=== PATIENT | male | born 1965 | race Caucasian/White ===

== ENCOUNTER 2022-12-28 07:53 | Outpatient (REF) | payer OTHER, SELFPAY ==
[2022-12-28 11:28] LABS: MANUAL DIFF FLAG NO
[2022-12-28 11:38] LABS: Basophils Absolute Auto 0.1 X10*3/uL (0.0-0.2); Basophils Percent Auto 0.9 % (0-2); Eosinophils Absolute Auto 0.2 X10*3/uL (0.0-0.4); Eosinophils Percent Auto 3.6 % (0-4); Hematocrit 44.8 % (42.0-52.0); Hemoglobin 15.6 g/dl (14.0-18.0); Imm Gran Abs Auto 0.03 X10*3/uL (0.00-0.03); Imm Gran Pct Auto 0.5 % (0.0-0.4); Lymphocytes Absolute Auto 1.6 X10*3/uL (1.2-4.9); Lymphocytes Percent Auto 28.6 % (20-40); Mean Corpuscular HGB Conc 34.8 g/dl (31.0-36.0); Mean Corpuscular Hemoglobin 30.3 pg (27.0-33.0); Mean Platelet Volume 10.2 fL (9.4-12.4); Monocytes Absolute Auto 0.7 X10*3/uL (0.1-1.2); Monocytes Percent Auto 12.6 % (2-11); Neutrophils Percent Auto 53.8 % (45-73); Platelet Count 257 X10*3/uL (160-400); Red Blood Count 5.15 X10*6/uL (4.60-5.80); Red Cell Distribution Width 12.9 % (11.0-16.0); White Blood Count 5.6 X10*3/uL (4.8-10.8)
[2022-12-28 11:47] LABS: Estimated Average Glucose 103 mg/dL; Hemoglobin A1c % 5.2 %
[2022-12-28 12:20] LABS: Alanine Aminotransferase 30 U/L (0-40); Albumin Level 4.4 g/dL (3.5-5.0); Alkaline Phosphatase 61 U/L (39-117); Anion Gap 12 (12-20); Aspartate Amino Transferase 22 U/L (5-37); Bilirubin Total 0.6 mg/dL (0.0-1.0); Blood Urea Nitrogen 12 mg/dL (9-16); Calcium 9.4 mg/dL (8.4-10.2); Carbon Dioxide 28 mmol/L (22-29); Chloride 105 mmol/L (96-108); Cholesterol 240 mg/dL; Estimated Glomerular Filt Rate > 60; Glucose Random 105 mg/dL (60-115); HDL Cholesterol 62 mg/dL; LDL Cholesterol Calculated 163 mg/dl; Potassium 4.5 mmol/L (3.3-5.1); Sodium 140 mmol/L (135-145); Total Protein 6.8 g/dL (6.5-8.0); Triglycerides 76 mg/dL
[2022-12-28 12:39] LABS: Prostate Specific Antigen 0.68 ng/mL (<0.05-4.0); Vitamin D 25-OH Total 117.1 ng/mL (>30)
== END 2022-12-28 07:54 | disposition home or self-care (01) ==
LOC: HO.MANLDS 07:53
PROVIDERS: Visit Provider Physician Assistant
DX: E78.2 Mixed hyperlipidemia (principal); E55.9 Vitamin D deficiency, unspecified; Z12.5 Encounter for screening for malignant neoplasm of prostate; R73.01 Impaired fasting glucose
CPT/HCPCS: 36415; 80053; 80061; 82306; 83036; 84153; 85025

== ENCOUNTER 2023-11-04 15:46 | Outpatient (REF) | payer OTHER, SELFPAY ==
[2023-11-04 17:28] LABS: MANUAL DIFF FLAG NO
[2023-11-04 17:47] LABS: Estimated Average Glucose 100 mg/dL; Hemoglobin A1C 124.6956 umol/L; Hemoglobin A1c % 5.1 % (<6.0)
[2023-11-04 17:53] LABS: Basophils Absolute Auto 0.1 X10*3/uL (0.0-0.2); Basophils Percent Auto 0.7 % (0-2); Eosinophils Absolute Auto 0.2 X10*3/uL (0.0-0.4); Eosinophils Percent Auto 2.6 % (0-4); Hematocrit 43.3 % (42.0-52.0); Hemoglobin 15.6 g/dl (14.0-18.0); Imm Gran Abs Auto 0.03 X10*3/uL (0.00-0.03); Imm Gran Pct Auto 0.4 % (0.0-0.4); Lymphocytes Percent Auto 26.9 % (20-40); Mean Corpuscular Hemoglobin 30.6 pg (27.0-33.0); Mean Corpuscular Volume 85.1 fL (80.0-98.0); Monocytes Absolute Auto 0.8 X10*3/uL (0.1-1.2); Monocytes Percent Auto 10.4 % (2-11); Neutrophils Absolute Auto 4.4 x10*3/uL (2.0-8.3); Platelet Count 260 X10*3/uL (160-400); Red Blood Count 5.09 X10*6/uL (4.60-5.80); Red Cell Distribution Width 12.9 % (11.0-16.0); White Blood Count 7.4 X10*3/uL (4.8-10.8)
[2023-11-04 17:58] LABS: Alanine Aminotransferase 29 U/L (0-40); Albumin Level 4.5 g/dL (3.5-5.0); Alkaline Phosphatase 53 U/L (39-117); Anion Gap 13 (12-20); Aspartate Amino Transferase 21 U/L (5-37); Bilirubin Total 0.6 mg/dL (0.0-1.0); Blood Urea Nitrogen 13 mg/dL (9-16); Calcium 9.2 mg/dL (8.4-10.2); Carbon Dioxide 26 mmol/L (22-29); Chloride 102 mmol/L (96-108); Estimated Glomerular Filt Rate > 60; Glucose Random 84 mg/dL (60-115); Iron 103 mcg/dL (45-160); Percent Iron Saturation 37 % (15-50); Potassium 4.1 mmol/L (3.3-5.1); Sodium 137 mmol/L (135-145); Total Iron Binding Capacity 278 mcg/dL (228-428); Total Protein 7.3 g/dL (6.5-8.0); Unsaturated Iron Binding 175 ug/dL
[2023-11-04 18:11] LABS: Prostate Specific Antigen 1.09 ng/mL (<0.05-4.0)
[2023-11-04 18:20] LABS: Ferritin 278 ng/mL (20-250); Free T4 (Free Thyroxine) 1.05 ng/dL (0.71-1.85); Thyroid Stimulating Hormone 1.35 uIU/mL (0.32-4.0); Vitamin D 25-OH Total > 154.2 ng/mL (>30)
== END 2023-11-04 15:47 | disposition home or self-care (01) ==
LOC: HO.MANLDS 15:46
PROVIDERS: Visit Provider Physician Assistant
DX: Z00.00 Encounter for general adult medical examination without abnormal findings (principal); Z12.5 Encounter for screening for malignant neoplasm of prostate
CPT/HCPCS: 36415; 80053; 82306; 82728; 83036; 83540; 84153; 84439; 84443; 85025

== ENCOUNTER 2024-11-16 10:07 | Outpatient (REF) | payer OTHER, SELFPAY ==
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
--- OUTSIDE RECORDS SUMMARY | 2024-11-16 11:16 | XMS_ITS | Data Portability ---
Author Organization [facility], [facility] Address [address] [place] [address] Care Team Providers Care Project Builder Name Role Phone LOY PEREZ Primary Care Provider MOHAN CANALES Orthopedist [phone] Assessment No assessment recorded. Plan of Treatment Reminders Order Date Submit Date Provider Last Modified By Organization Details Last Modified Time Details Appointments None recorded. Lab None recorded. Referral None recorded. Procedures colonoscopy procedure (PROC) [address] [facility], [address] [place] [address], [address], 2 10:38:05 Surgeries None recorded. Imaging None recorded. Medication Orders losartan 25 mg tablet 2021 022 [facility] #[id number], [address], [place], [id number], 3 10:33:38 [facility] 10 mg tablet 2020 [id number], [address], [place], [id number], 3 10:33:36 amlodipine 5 mg tablet 2020 021 [id number], [address], [place], [id number], 1 16:34:36 Patient TargetsNo targets recorded. Patient Instructions Encounter Date Encounter Id Patient Instructions Last Modified By Organization Details Last Modified Time 11/16/2020 [id number] deciding about using medicines to quit smoking yvonne Not available 11/16/2020 16:54:36 Quitting Tobacco: Care Instructions yvonne Not available 11/16/2020 16:54:36 Well Visit 50 to 65: Care Instructions yvonne Not available 11/16/2020 16:54:37 After a discussion of treatment options, which included consideration of best practices and patient preferences, the following treatment plan and objectives were adopted: Vitamin D 1000 IUs, Calcium rich diet, exercise daily, resistance training twice per week, Mediterranean diet reviewed. yvonne Not available 11/16/2020 16:55:51 Prostate Cancer Screening using PSA was discussed. The U.S. Preventive Services Task Force advises not to make a PSA test a part of the standard exam for men ages 55-69. Instead they recommend the uncertainties about the test be discussed and ordered only if a patient still wants it. Over their lifetimes as many as 50% or more of men will develop prostate cancer but only 2% of men will of prostate cancer. For men who chose to be screened for prostate cancer if 1000 men are screened with a psa test over a 15 year period there might be 1-2 deaths prevented however 235 men will have a biopsy with risk of infection, bleeding and Pain, 100 men will have their prostate removed by surgery or radiation treatments and 60-70 of those will suffer incontinence or impotence. There is also the risk of anesthesia or radiation complications. For men over 70 prostate cancer screening offered no benefit and risked pain, worry, expense and possibly shorter life expectancy. Counseling done {{Patient not ready to quit Contemplati ng quitting Taperin g Cigarettes cally d up for support prescrip tion for stop smoking medication given}} {{Patient not ready to quit Contemplati ng quitting Taperin g Cigarettes cally d up for support prescrip tion for stop smoking medication given}} Goal for follow up visit {{adding exercise regular meals stress management impro ving sleep therapist identifying sponsor}} {{adding exercise regular meals stress management impro ving sleep therapist identifying sponsor}} {{adding exercise regular meals stress management impro ving sleep therapist identifying sponsor}}My Health To Do List {{go to [employer] www.[employer] or call s ign up for glenn text 2 quit or other stop smoking glenn contact [employer].gov}} {{go to [employer] ([employer]) or call s ign up for glenn text 2 quit or other stop smoking glenn contact smokefree.gov}} {{go to [employer] (formerly [employer]) or call s ign up for glenn text 2 quit or other stop smoking glenn contact smokefree.gov}} Not available 11/16/2020 15:52:26 05/17/2021 [id number] high cholesterol lifestyle changes aesrick Not available 05/17/2021 17:16:49 deciding about using medicines to quit smoking aesrick Not available 05/17/2021 17:16:49 Quitting Tobacco: Care Instructions aesrick Not available 05/17/2021 17:16:49 Counseling done {{Patient not ready to quit* Contemplat ing quitting Taperin g Cigarettes cally d up for support prescrip tion for stop smoking medication given}} {{Patient not ready to quit Contemplati ng quitting Taperin g Cigarettes cally d up for support prescrip tion for stop smoking medication given}} Goal for follow up visit {{adding exercise regular meals stress management impro ving sleep therapist identifying sponsor}} {{adding exercise regular meals stress management impro ving sleep therapist identifying sponsor}} {{adding exercise regular meals stress management impro ving sleep therapist identifying sponsor}} My Health To Do List {{go to [employer] or call s ign up for glenn text 2 quit or other stop smoking glenn contact smokefree.gov}} {{go to [employer] ([employer]) or call s ign up for glenn text 2 quit or other stop smoking glenn contact smokefree.gov}} {{go to [employer] ([employer]) or call s ign up for glenn text 2 quit or other stop smoking glenn contact smokefree.gov}} aesrick Not available 05/17/2021 17:16:13 06/28/2021 [id number] After a discussion of treatment options, which included consideration of best practices, patient preferences, and the patient? s individual lifestyle and treatment goals, as well as consideration and attempted mitigation of any barriers to meeting the patient? s goals, the following treatment plan and objectives were adopted: as above aesrick Not available 07/01/2021 09:55:14 12/06/2021 [id number] deciding about using medicines to quit smoking aesrick Not available 12/06/2021 16:40:28 Quitting Tobacco: Care Instructions aesrick Not available 12/06/2021 16:40:28 Well Visit 50 to 65: Care Instructions aesrick Not available 12/06/2021 16:40:27 After a discussion of treatment options, which included consideration of best practices and patient preferences, the following treatment plan and objectives were adopted: Vitamin D 1000 IUs, Calcium rich diet, exercise daily, resistance training twice per week, Mediterranean diet reviewed. aesrick Not available 12/06/2021 16:41:03 Prostate Cancer Screening using PSA was discussed. The U.S. Preventive Services Task Force advises not to make a PSA test a part of the standard exam for men ages 55-69. Instead they recommend the uncertainties about the test be discussed and ordered only if a patient still wants it. Over their lifetimes as many as 50% or more of men will develop prostate cancer but only 2% of men will of prostate cancer. For men who chose to be screened for prostate cancer if 1000 men are screened with a psa test over a 15 year period there might be 1-2 deaths prevented however 235 men will have a biopsy with risk of infection, bleeding and Pain, 100 men will have their prostate removed by surgery or radiation treatments and 60-70 of those will suffer incontinence or impotence. There is also the risk of anesthesia or radiation complications. For men over 70 prostate cancer screening offered no benefit and risked pain, worry, expense and possibly shorter life expectancy declined PSA{{Patient not ready to quit* Contemplat ing quitting Taperin g Cigarettes cally d up for support prescrip tion for stop smoking medication given}} {{Patient not ready to quit Contemplati ng quitting Taperin g Cigarettes cally d up for support prescrip tion for stop smoking medication given}} Goal for follow up visit {{adding exercise regular meals stress management ernie herndong sleep therapist identifying sponsor}} {{adding exercise regular meals stress management impro ving sleep therapist identifying sponsor}} {{adding exercise regular meals stress management impro ving sleep therapist identifying sponsor}} My Health To Do List {{go to [employer] ([employer]) or call s ign up for glenn text 2 quit or other stop smoking glenn contact [employer]Coding Technologies.gov}} {{go to [employer] (formerly [employer]) or call s ign up for glenn text 2 quit or other stop smoking glenn contact smokefree.gov}} {{go to quit[employer]do[employer] (formerly [employer]) or call s ign up for glenn text 2 quit or other stop smoking glenn contact [employer]Coding [employer].gov}} aesrick Not available 12/06/2021 16:47:23 01/24/2022 [id number] deciding about using medicines to quit smoking aesrick Not available 01/24/2022 17:25:09 Quitting Tobacco: Care Instructions aesrick Not available 01/24/2022 17:25:09 Counseling done {{Patient not ready to quit Contemplati ng quitting Taperin g Cigarettes cally d up for support prescrip tion for stop smoking medication given}} {{Patient not ready to quit Contemplati ng quitting Taperin g Cigarettes cally d up for support prescrip tion for stop smoking medication given}} Goal for follow up visit {{adding exercise regular meals stress management impro ving sleep therapist identifying sponsor}} {{adding exercise regular meals stress management impro ving sleep therapist identifying sponsor}} {{adding exercise regular meals stress management impro ving sleep therapist identifying sponsor}} My Health To Do List {{go to [employer] or call s ign up for glenn text 2 quit or other stop smoking glenn contact smokefree.gov}} {{go to [employer] (formerly [employer]) or call s ign up for glenn text 2 quit or other stop smoking glenn contact smokefree.gov}} {{go to quit[employer]doo (formerly [employer]) or call s ign up for glenn text 2 quit or other stop smoking glenn contact [employer]}} milagro Not available 01/24/2022 16:40:53 Reason for Referral None Reported. Results Created Date Observation Date Name Description Value Unit Range Abnormal Flag Note LastModifiedBy Organization Detail LastModifiedTime 11/12/19 21 11/14/2020 BMP, serum or plasm a glucose 77 mg/dL 70-100 Not Available [address], [address], 11/14/2020 12:01:05 11/12/19 21 11/14/2020 BMP, serum or plasm a BUN 20 mg/dL 7-18 high Not Available [address], [address], 11/14/2020 12:01:05 11/12/19 21 11/14/2020 BMP, serum or plasm a creatinine 1.1 mg/dL 0.8-1. 3 Not Available [address], [address], 11/14/2020 12:01:05 11/12/19 21 11/14/2020 BMP, serum or plasm a B/C 18.2 ratio Not Available [address], [address], 11/14/2020 12:01:05 11/12/19 21 11/14/2020 BMP, serum or plasm a GFR -non 73.9 mL/mi n Recom slime d GFR by the Natio nal Kidne y Found ation >60 mL/mi n/1.7 3m2 - Gabriela l <60 mL/mi n/1.7 3m2 - Chron ic Kidne y Disea se <15 mL/mi n/1.7 3m2 - Kidne y Failu re Not Available [address], [address], 11/14/2020 12:01:05 11/12/19 21 11/14/2020 BMP, serum or plasm a GFR - if 89.4 mL/mi n For Afric an Ameri can patie nts: Resul ts Multi plied by 1.21 Not Available [address], [address], 11/14/2020 12:01:05 11/12/19 21 11/14/2020 BMP, serum or plasm a sodium 144 mmol/ L 136-14 5 Not Available [address], [address], 11/14/2020 12:01:05 11/12/19 21 11/14/2020 BMP, serum or plasm a potassium 4.1 mmol/ L 3.5-5. 1 Not Available [address], [address], 11/14/2020 12:01:05 11/12/1911/14/2020 BMP, serum or plasm a chloride 104 mmol/ L 96-107 Not Available [address], [address], 11/14/2020 12:01:05 11/12/19 21 11/14/2020 BMP, serum or plasm a anion gap 11.6 5.0-15 .0 Not Available [address], [address], 11/14/2020 12:01:05 11/12/19 21 11/14/2020 BMP, serum or plasm a CO2 28 mmol/ L 21-32 Not Available [address], [address], 11/14/2020 12:01:05 11/12/19 21 11/14/2020 BMP, serum or plasm a calcium 9.1 mg/dL 8.5-10 .3 Not Available [address], [address], 11/14/2020 12:01:05 11/12/19 21 11/14/2020 lipid panel , serum cholesterol 221 mg/dL <200 mg/dl Mohinder able 200-2 39 mg/dl Borde rline High >240 mg/dl High Not Available [address], [address], 11/14/2020 12:01:06 11/12/19 21 11/14/2020 lipid panel , serum triglyceride s 138 mg/dL <150 mg/dL Gabriela l 150-1 99 mg/dL Borde rline High 200-4 99 mg/dL High >500 mg/dL Very High Not Available [address], [address], 11/14/2020 12:01:06 11/12/19 21 11/14/2020 lipid panel , serum direct HDL 86 mg/dL <40 mg/dl - Major Risk for CHD >60 mg/dl - Negat quincy Risk for CHD Not Available [address], [address], 11/14/2020 12:01:06 11/12/19 21 11/14/2020 LDL, direc t, serum direct LDL 119 mg/dL RISK CATEG ORY LDL GOAL _ CHD or CHD Risk Equiv alent s <100 mg/dl (10-y ear risk >20%) 2+ Risk Facto rs <130 mg/dl (10-y ear risk <= 20%) 0-1 Risk Facto r? <160 mg/dl ? Almos t all peopl e with 0-1 risk facto r have a 10 year risk <10%, thus 10 year risk asses ment in peopl e with 0-1 risk facto r is not neces leila. Not Available [address], [address], 11/14/2020 12:01:07 11/18/1911/17/2020 urina lysis , refle x cultu re color Yellow yellow Not Available [facility] [address] [place], [address], 11/17/2020 05:34:45 11/18/19 21 11/17/2020 urina lysis , refle x cultu re clarity Clear Not Available [facility] [address] [place], [address], 11/17/2020 05:34:45 11/18/19 21 11/17/2020 urina lysis , refle x cultu re glucose Negati ve negati ve Not Available [facility] [address] [place], [address], 11/17/2020 05:34:45 11/18/19 21 11/17/2020 urina lysis , refle x cultu re bili Negati ve negati ve Not Available [facility] [address] [place], [address], 11/17/2020 05:34:45 11/18/19 21 11/17/2020 urina lysis , refle x cultu re ketones Negati ve negati ve Not Available [facility] [address] [place], [address], 11/17/2020 05:34:45 11/18/19 21 11/17/2020 urina lysis , refle x cultu re specific gravity 1.020 1.005- 1.030 Not Available [facility] [address] [place], [address], 11/17/2020 05:34:45 11/18/19 21 11/17/2020 urina lysis , refle x cultu re blood Negati ve negati ve Not Available [facility] [address] [place], [address], 11/17/2020 05:34:45 11/18/19 21 11/17/2020 urina lysis , refle x cultu re pH 8.5 5.0-8. 0 high Not Available [facility] [address] [place], [address], 11/17/2020 05:34:45 11/18/19 21 11/17/2020 urina lysis , refle x cultu re protein Negati ve negati ve Not Available [facility] [address] [place], [address], 11/17/2020 05:34:45 11/18/19 21 11/17/2020 urina lysis , refle x cultu re nitrite Negati ve negati ve Not Available [facility] [address] [place], [address], 11/17/2020 05:34:45 11/18/19 21 11/17/2020 urina lysis , refle x cultu re leukocyte esterase, ur Negati ve negati ve Not Available [facility] [address] [place] [address], [address], 11/17/2020 05:34:45 11/18/19 21 11/17/2020 CBC w/ auto diff WBC 8.73 K/uL 4.00-1 1.00 Not Available [facility] [address] [place] [address], [address], 11/17/2020 05:54:48 11/18/19 21 11/17/2020 CBC w/ auto diff RBC 4.86 M/uL 4.23-5 .82 Not Available [facility] [address] [place] [address], [address], 11/17/2020 05:54:48 11/18/19 21 11/17/2020 CBC w/ auto diff HGB 14.6 g/dL 13.4-1 7.5 Not Available [facility] [address] [place] [address], [address], 11/17/2020 05:54:48 11/18/19 21 11/17/2020 CBC w/ auto diff HCT 42.2 % 37.0-5 1.0 Not Available [facility] [address] [place] [address], [address], 11/17/2020 05:54:48 11/18/19 21 11/17/2020 CBC w/ auto diff plt 243 K/uL 140-43 0 Not Available [facility] [address] [place] [address], [address], 11/17/2020 05:54:48 11/18/19 21 11/17/2020 CBC w/ auto diff MCV 86.8 fL 78.0-9 7.0 Not Available [facility] [address] [place] [address], [address], 11/17/2020 05:54:48 11/18/19 21 11/17/2020 CBC w/ auto diff MCH 30.0 pg 25.0-3 3.0 Not Available [facility] [address] [place] [address], [address], 11/17/2020 05:54:48 11/18/19 21 11/17/2020 CBC w/ auto diff MCHC 34.6 g/dL 32.0-3 6.0 Not Available [facility] [address] [place] [address], [address], 11/17/2020 05:54:48 11/18/19 21 11/17/2020 CBC w/ auto diff RDW 12.9 % 11.0-1 5.0 Not Available [facility] [address] [place] [address], [address], 11/17/2020 05:54:48 11/18/19 21 11/17/2020 CBC w/ auto diff MPV 9.6 fL 8.4-12 .8 Not Available [facility] [address] [place] [address], [address], 11/17/2020 05:54:48 11/18/19 21 11/17/2020 CBC w/ auto diff NRBC 0.00 /100_ WBCs 0 Not Available [facility] [address] [place], [address], 11/17/2020 05:54:48 11/18/19 21 11/17/2020 CBC w/ auto diff absolute NRBC 0.00 K/uL 0 Not Available [facility] [address] [place], [address], 11/17/2020 05:54:48 11/18/19 21 11/17/2020 CBC w/ auto diff diff method Auto Not Available [facility] [address] [place], [address], 11/17/2020 05:54:48 11/18/19 21 11/17/2020 CBC w/ auto diff neuts 83.6 % 43.0-7 5.0 high Not Available [facility] [address] [place], [address], 11/17/2020 05:54:48 11/18/19 21 11/17/2020 CBC w/ auto diff lymphs 8.6 % 18.2-4 7.4 low Not Available [facility] [address] [place] [address], [address], 11/17/2020 05:54:48 11/18/19 21 11/17/2020 CBC w/ auto diff monos 6.6 % 4.00-1 1.00 Not Available [facility] [address] [place], [address], 11/17/2020 05:54:48 11/18/19 21 11/17/2020 CBC w/ auto diff eos 0.2 % 0.0-8. 0 Not Available [facility] [address] [place], [address], 11/17/2020 05:54:48 11/18/19 21 11/17/2020 CBC w/ auto diff basos 0.7 % 0.0-2. 0 Not Available [facility] [address] [place], [address], 11/17/2020 05:54:48 11/18/19 21 11/17/2020 CBC w/ auto diff granulocytes , immature (%) 0.3 % 0.0-0. 9 Not Available [facility] [address] [place], [address], 11/17/2020 05:54:48 11/18/19 21 11/17/2020 CBC w/ auto diff absolute neuts 7.29 K/uL 1.80-7 .70 Not Available [facility] [address] [place] [address], [address], 11/17/2020 05:54:48 11/18/19 21 11/17/2020 CBC w/ auto diff absolute lymphs 0.75 K/uL 1.00-3 .10 low Not Available [facility] [address] [place] [address], [address], 11/17/2020 05:54:48 11/18/19 21 11/17/2020 CBC w/ auto diff absolute monos 0.58 K/uL 0.20-0 .80 Not Available [facility] [address] [place], [address], 11/17/2020 05:54:48 11/18/19 21 11/17/2020 CBC w/ auto diff absolute eos 0.02 K/uL 0.00-0 .80 Not Available [facility] [address] [place] [address], [address], 11/17/2020 05:54:48 11/18/19 21 11/17/2020 CBC w/ auto diff absolute basos 0.06 K/uL 0.00-0 .09 Not Available [facility] [address] [place], [address], 11/17/2020 05:54:48 11/18/19 21 11/17/2020 CBC w/ auto diff granulocytes , immature 0.03 K/uL 0.00-0 .05 Not Available [facility] [address] [place], [address], 11/17/2020 05:54:48 11/18/19 21 11/17/2020 BMP, blood sodium 142 mmol/ L 133-14 6 Not Available [facility] [address] [place], [address], 11/17/2020 06:17:56 11/18/1911/17/2020 BMP, blood chloride 104 mmol/ L 96-108 Not Available [facility] [address] [place], [address], 11/17/2020 06:17:56 11/18/1911/17/2020 BMP, blood potassium 4.1 mmol/ L 3.3-5. 1 Not Available [facility] [address] [place], [address], 11/17/2020 06:17:56 11/18/19 21 11/17/2020 BMP, blood CO2 30 mmol/ L 21-35 Not Available [facility] [address] [place], [address], 11/17/2020 06:17:56 11/18/1911/17/2020 BMP, blood BUN 15 mg/dL 6-19 Not Available [facility] [address] [place], [address], 11/17/2020 06:17:56 11/18/19 21 11/17/2020 BMP, blood creatinine 0.80 mg/dL 0.5-1. 5 Not Available [facility] [address] [place] [address], [address], 11/17/2020 06:17:56 11/18/19 21 11/17/2020 BMP, blood glucose 126 mg/dL 70-99 high Not Available [facility] [address] [place] [address], [address], 11/17/2020 06:17:56 11/18/19 21 11/17/2020 BMP, blood calcium 9.1 mg/dL 8.4-10 .3 Not Available [facility] [address] [place] [address], [address], 11/17/2020 06:17:56 11/18/19 21 11/17/2020 BMP, blood eGFR 101 mL/mi n/1.7 3m2 >59 Estim ated glome rular filtr ation rate calcu lated using the CKD-E PI equat ion. Not Available [facility] [address] [place] [address], [address], 11/17/2020 06:17:56 11/18/19 21 11/17/2020 BMP, blood anion gap 12 mmol/ L 10-20 Not Available [facility] [address] [place] [address], [address], 11/17/2020 06:17:56 11/18/19 21 11/17/2020 lipas e, serum or plasm a lipase 26 U/L 16-63 Not Available [facility] [address] [place] [address], [address], 11/17/2020 06:17:57 11/18/19 21 11/17/2020 lfts (hepa tic panel ) alkaline phosphatase 47 U/L 39-117 Not Available [facility] [address] [place], [address], 11/17/2020 06:17:58 11/18/19 21 11/17/2020 lfts (hepa tic panel ) total bilirubin 0.3 mg/dL 0.0-1. 2 Not Available [facility] [address] [place], [address], 11/17/2020 06:17:58 11/18/19 21 11/17/2020 lfts (hepa tic panel ) direct bilirubin <0.2 mg/dL 0-0.3 Not Available [facility] [address] [place], [address], 11/17/2020 06:17:58 11/18/19 21 11/17/2020 lfts (hepa tic panel ) bilirubin (indirect) NOT CALCUL ATED mg/dL 0-1.5 Not Available [facility] [address] [place], [address], 11/17/2020 06:17:58 11/18/19 21 11/17/2020 lfts (hepa tic panel ) AST 18 U/L 0-37 Not Available [facility] [address] [place], [address], 11/17/2020 06:17:58 11/18/1911/17/2020 lfts (hepa tic panel ) ALT 20 U/L 0-40 Not Available [facility] [address] [place], [address], 11/17/2020 06:17:58 11/18/1911/17/2020 lfts (hepa tic panel ) total protein 6.9 g/dL 6.5-8. 0 Not Available [facility] [address] [place], [address], 11/17/2020 06:17:58 11/18/19 21 11/17/2020 lfts (hepa tic panel ) albumin 4.4 g/dL 3.9-4. 8 Not Available [facility] [address] [place] [address], [address], 11/17/2020 06:17:58 11/18/19 21 11/17/2020 lfts (hepa tic panel ) globulin 2.5 g/dL 1-4.8 Not Available [facility] [address] [place], [address], 11/17/2020 06:17:58 11/18/19 21 11/17/2020 lfts (hepa tic panel ) A/G ratio 1.76 ratio 1.00-4 .80 Not Available [facility] (Outpatient) [address] [place] [address], [address], 11/17/2020 06:17:58 11/18/19 21 11/17/2020 alva huey respi rator y viral order (pro) test ordered Rapid COVID has been ordere d Not Available [facility] (Outpatient) [address] [place] [address], [id number], 11/17/2020 14:56:57 11/18/19 21 11/17/2020 alva huey respi rator y viral order (pro) specimen source NASAL Not Available [facility] (Outpatient) [address] [place] [address], [address], 11/17/2020 14:56:57 11/18/19 21 11/17/2020 alva huey respi rator y viral order (pro) sars-cov-2 result Negati ve negati ve Negat quincy resul ts do not precl ude SARS- CoV-2 infec tion and shoul d not be used as the sole basis for patie nt manag ement decis ions. Negat quincy resul ts must be combi lia with clini oliva obser vatio ns, patie nt histo ry, and epide miolo gical infor matio n. Testi ng was perfo rmed using the Abbot t ID NOW COVID -19 assay perfo rmed on the Abbot t ID NOW Instr ument . Fact sheet s for this Emerg ency Use Autho michel mosley can be found at the [employer] wing links : For Healt hcare Provi ders: https ://ww [employer].com.One2start .gov/ media /8540 23/do wnloa d For Patie nts: https ://ww [employer].com.One2start .gov. media /1367 24/do wnloa d. Not Available [facility] (Outpatient) [address] [facility], [place], [address], 11/17/2020 14:56:57 11/19/1911/21/2020 patho logy study path report [facility] [address] [place] [address] Lab Direc tor: Dyan carreon MD Surgi oliva Patho logy Repor t Acces westley #: [id number] FINAL PATHO LOGIC DIAGN OSIS: GALLB LADDE R AND ROBINSON NTS, FIDE CYSTE CTOMY : Chron ic fide cysti tis, fide stero losis and fide lithi asis. Tiffanie ctron icall y Cally d Out By Dyan carreon MD By his/h er lance tamayo above , the patho logis t liste d as chu austin the Final Diagn osis certi fies that he/sh e has perso bong revie wed this case and confi rmed or corre cted the diagn osis. CLINI OLIVA HISTO RY Fide lithi asis SPECI MENS SUBMI TTED: A: GALLB LADDE R AND ROBINSON NTS, FIDE CYSTE CTOMY GROSS DESCR IPTIO N GALLB LADDE R AND ROBINSON NTS, FIDE CYSTE CTOMY : Recei aston in forma david is a previ ously incis ed gallb ladde r which measu res 8 cm in lengt h and up to 2.[address]. Seros al surfa claribel are unrem arkab le. Surgi oliva stapl es are prese nt in the regio n of the cysti c duct. The speci men is opene d sanjayi stephane anny to revea l numer ous fragm ented green gissell-y ellow galls tones and fragm ents which range in size from 0.1 to 1.1 cm in great est dimen westley. In aggre gate the stone s and fragm ents measu re 2.5 x 1.5 x 0.5 cm. Mucos al surfa claribel are unrem arkab le. No polyp s or aimee s are prese nt. The wall measu res 0.2 cm in thick ness. Repre senta tive secti ons in block A1. DN Gross ing Staff : OLIVIA lea Name: LATA GARVIN : 1965 (Age: 55) Sex: M 3 Insti tutio n: [facility] Locat ion: [facility] ST[facility] Date of Opera tion: Date of Acces westley: 021 Repor srinivas: 13:14 Resul ts To: Stefania MATIAS Not Available [facility] (Outpatient) [address] [place] [address], [address], 11/21/2020 14:42:35 05/15/20 21 05/15/2021 BASIC METAB OLIC PANEL glucose 99 mg/dL 70-100 Not Available [address], [address], 05/15/2021 12:45:56 05/15/20 21 05/15/2021 BASIC METAB OLIC PANEL BUN 15 mg/dL 7-18 Not Available [address], [address], 05/15/2021 12:45:56 05/15/20 21 05/15/2021 BASIC METAB OLIC PANEL creatinine 1.0 mg/dL 0.8-1. 3 Not Available [address], [address], 05/15/2021 12:45:56 05/15/20 21 05/15/2021 BASIC METAB OLIC PANEL B/C 15.0 ratio Not Available [address], [address], 05/15/2021 12:45:56 05/15/20 21 05/15/2021 BASIC METAB OLIC PANEL GFR 82.5 mL/mi n Recom slime d GFR by the Natio nal Kidne y Found ation >60 mL/mi n/1.7 3m2 - Gabriela l <60 mL/mi n/1.7 3m2 - Chron ic Kidne y Disea se <15 mL/mi n/1.7 3m2 - Kidne y Failu re Not Available [address], [address], 05/15/2021 12:45:56 05/15/20 21 05/15/2021 BASIC METAB OLIC PANEL sodium 142 mmol/ L 136-14 5 Not Available [address], [address], 05/15/2021 12:45:56 05/15/20 21 05/15/2021 BASIC METAB OLIC PANEL potassium 4.5 mmol/ L 3.5-5. 1 Not Available [address], [address], 05/15/2021 12:45:56 05/15/20 21 05/15/2021 BASIC METAB OLIC PANEL chloride 103 mmol/ L 96-107 Not Available [address], [address], 05/15/2021 12:45:56 05/15/20 21 05/15/2021 BASIC METAB OLIC PANEL anion gap 10.3 5.0-15 .0 Not Available [address], [address], 05/15/2021 12:45:56 05/15/20 21 05/15/2021 BASIC METAB OLIC PANEL CO2 29 mmol/ L 21-32 Not Available [address], [address], 05/15/2021 12:45:56 05/15/20 21 05/15/2021 BASIC METAB OLIC PANEL calcium 8.8 mg/dL 8.5-10 .3 Not Available [address], [address], 05/15/2021 12:45:56 05/15/20 21 05/16/2021 VITAM IN D 25-HY DROXY TOTAL vitamin D 25-hydroxy EIA 82.1 NG/mL 20.0-9 9.9 Thera py is based on measu remen t of total 25-OH D, with level s less than 20 ng/mL indic ative of Vitam in D defic iency . Level s betwe en 20ng/ mL and 30 ng/mL sugge st insuf ficie ncy. Optim al Level s are great er than 30 ng/mL . Not Available [address], [address], 05/16/2021 12:55:04 11/18/19 21 11/17/2020 CT abdom en/pe lvis with contr ast CT ABDOME N/PELV IS WITH CONTRA ST TECHNI QUE: CT of the abdome n and pelvis WITH intrav enous contra st. COMPAR BRYANT: None. FINDIN GS: LOWER THORAX : No pleura l or perica rdial effusi ons. No masses in the lung bases. HEPATO BILIAR Y: No focal hepati c lesion s. No biliar y ductal dilata tion. Cholel ithias is. The gallbl adder is mildly disten ded. Mild gallbl adder wall thicke moise measur ing up to 5 mm. SPLEEN : No spleno megaly . PANCRE : No focal masses or ductal dilata tion. ADRENA LS: No adrena l nodule s. KIDNEY S/URET ERS: No hydron ephros is, stones , or solid mass lesion s. PELVIC ORGANS /BLADD ER: No pelvic masses . PERITO NEUM / RETROP ERITON EUM: No free air or fluid. LYMPH NODES: No abdomi nal pelvic lympha denopa thy. VESSEL S: No abdomi nal aortic aneury sm. Scatte red athero sclero sis. Note is made of a retro- aortic left renal vein. GI TRACT: Normal append ix (6:47, 3:62). No bowel wall thicke moise or dilata tion. No eviden ce of bowel obstru ction. BONES AND SOFT TISSUE S: Unrema rkable . IMPRES WESTLEY: 1.Mild gallbl adder wall thicke moise and to depend ent calcif ied stones . If there is concer n for acute cholec ystiti s, ultras ound may be helpfu l for furthe r evalua tion. 2.No other acute abdomi nopelv ic proces s. Specif ically normal append ix, no eviden ce of bowel obstru ction, no renal or ureter al stones . ATTEST ATION: I, Blaine Antonio as teachi ng physic jimbo, have review ed the images for this case and if necess annabelle edited the report origin ally create d by Madi howell. Electr onical ly Signed by: Blaine Antonio on 11/18/19 7:16 AM Interp reted by: MD Matt Manzanares, DO Madi howell MD Signed by: Blaine Antonio MD 11/17/20 CC Recipi ents: Loy Perez PA - Fax Final result Ps woke @ 0100hr s with epigas tric pain-3 rd time in a few months -no hx abdomi nal surger y LOY PEREZ [facility] [address] [place], [address], 12/01/2020 08:37:59 11/18/1911/17/2020 CT, abdom en + pelvi s, w/ contr ast No observ ation record ed. [facility] (Emergency Room) [address] [place] [address], [address], 11/18/2020 11:03:16 11/18/19 21 11/17/2020 US abdom en limit ed singl e organ US ABDOME N LIMITE D SINGLE ORGAN TECHNI QUE: Limite d ultras ound evalua tion of the abdome n focuse d on the right upper quadra nt. Volume tric sweeps were obtain ed and review ed. COMPAR BRYANT: CT 11/18/19 FINDIN GS: Focuse d ultras ound of the gallbl adder only was perfor med Multip le gallst ones, larges t measur es 1.8 cm. There is gallbl adder wall thicke moise up to 7 mm with some marlon-g allbla dder inflam mation . Common bile duct measur es 4 mm. No eviden ce of intrah epatic biliar y ductal dilata tion. IMPRES WESTLEY: Findin gs strong ly sugges t acute cholec ystiti s. Electr onical ly Signed by: Dr. Raúl bustillo on 11/18/19 10:05 AM Interp reted by: Raúl bustillo MD, JAYESH Signed by: Raúl bustillo MD, JAYESH 11/17/20 Final result US ordere d as a f/u to the CT ( GB was abnorm al ) Pt had abdomi nal pain for the third time in 2 months The GB is abnorm al in appear ance with 2 stones seen close to the neck, one of them may be in the neck. They measur e 1.8 cm and 1.7 cm in size. There is echoge bon materi al in the Gb as well. The wall is thicke lia and hypere huey. The patien t is tender while scanni ng over the GB, but there was no positi ve Fernandez 's sign. The CBD is 4 mm. LOY PEREZ [facility] [address] [facility], [place], [address], 12/01/2020 08:37:59 Result Notes None recorded. Problems Name Problem SNOMED Code Status Onset Date Resolution Date Notes Provider Name and Address Organization Details Recorded Time Essential hypertensio n 13709287 Active 2018 Loy Perez, POLLY [address] [place] [address], [place], [address] , [facility] 9 16:39:20 Concussion with no loss of consciousne 10600069 Completed 200707/08/2013 POLLY Rausch [address] [place], [address], [facility] 6 16:05:23 Verruca vulgaris 78804524 Completed 200107/08/2013 POLLY Rausch [address] [place], [address], [facility] 6 16:05:23 Panic disorder without agoraphobia 55131580 Completed 200111/30/2015 POLLY Rausch [address] [place], [address], [facility] 6 16:05:23 Knee pain Completed 200507/08/2013 POLLY Rausch [address] [place], [address], [facility] 6 16:05:23 Blood chemistry outside reference range 064252010 Completed 200107/08/2013 POLLY Rausch [address] [place], [address], [facility] 6 16:05:23 Sprain of knee and leg Completed 200507/08/2013 POLLY Rausch [address] [place], [address], [facility] 6 16:05:23 Closed fracture of nasal bones 82228818 Completed 200707/08/2013 POLLY Rausch [address] [place], [address], [facility] 6 16:05:23 Low back pain 929501936 Active 2001 POLLY Rausch [address] [place], [address], [facility] 6 16:05:23 Hypothyroid is 92258336 Completed 200111/30/2015 POLLY Rausch [address] [place], [address], [facility] 6 16:05:23 Pure hypercholes terolemia 849241906 Active 2001 POLLY Rausch [address] [place], [address], [facility] 6 16:05:23 Closed fracture of rib 58878427 Completed 200207/08/2013 POLLY Rausch [address] [place], [address], [facility] 6 16:05:23 Problem Notes None recorded. Procedures Surgical History Date Name Laterality Status Provider Name and Address Organization Details Recorded Time 01/25/20 22 Smoking cessation counseling completed Yamel lee [facility] 01/24/2022 16:40:54 12/07/19 22 Smoking cessation counseling completed Yojana Ellsworth [facility] 12/06/2021 15:54:33 05/17/20 21 Smoking cessation counseling completed POLLY Rausch [address] [place] [address], [address], [facility] 05/17/2021 17:17:32 11/17/19 21 Smoking cessation counseling completed Gabby Hager [facility] 11/16/2020 15:52:26 11/17/19 21 Carbon Monoxide Testing completed Gabby Hager [facility] 11/16/2020 15:52:26 11/17/19 21 prevention-cardiova scular risk reduction counseling completed Gabby Hager [facility] 11/16/2020 15:48:43 11/17/19 21 prevention-annual alcohol misuse screening completed Gabby Hager [facility] 11/16/2020 15:48:43 12/23/19 20 Smoking cessation counseling completed POLLY Rausch [address] [place], [address], [facility] 12/23/2019 16:51:13 12/23/19 20 Carbon Monoxide Testing completed Sumaya Peters [facility] 12/23/2019 16:20:14 03/05/20 16 Asthma Control Test (12 + years old) completed CHAR Gilliam [facility] 03/05/2016 09:18:38 01/29/20 13 Aspiration Intermediate Joint/Bursa completed Jorge Abrams MD [address] [place] [address], [address], [facility] 01/28/2013 14:20:53 Cholecystectomy completed POLLY Rausch [address] [place], [address], [facility] 12/01/2020 08:58:14 Vasectomy completed Chandana Perez MD [address] [place] [address], [address], [facility] 04/23/2012 16:23:57 Imaging Results Imaging Date Name Status LastModified by Organiz ation Details LastModified Time 11/17/2020 CT abdomen/pelvi s with contrast completed [facility] [address] [place] [address], [address], 12/01/2020 08:37:59 11/17/2020 CT, abdomen + pelvis, w/ contrast completed [facility] ([facility]gency Room) [address] [place] [address], [address], 11/18/2020 11:03:16 11/17/2020 US abdomen limited single organ completed [facility] [address] [place], [address], 12/01/2020 08:37:59 Procedure Notes None recorded. Medical Equipment None Reported. Allergies Allergen ID Allergen Name Allergen Category Reaction Reaction Severity Criticality Documentation Date Start Date Code Code System Note Provider Name and Address Organization Details Recorded Time 20020821 lisinopri l medicatio n cough Not available Not available 06/03/2017 14530 RxNorm POLLY Rausch [address] [place], [address], [facility] 17:05:48 Medications Name Sig Start Date Stop Date Status Note LastModified by Organization Details LastModified Time doxycycl hyc tab 100mg active Not Available Not Available Not Available Rocephin 1 gram solution for injection 2012 active Not Available Not Available Not Avai lable amlodipin e 2.5 mg tablet take 1 tablet by mouth once daily 06/01 completed Stopped taking 07.08.17 Not Available Not Available Not Available amlodipin e 5 mg tablet TAKE 1 TABLET BY MOUTH EVERY DAY 06/28 completed Not Available Not Available Not Available amlodipin e 10 mg tablet TAKE 1 TABLET BY MOUTH EVERY DAY AT BEDTIME 2021 active Not Available Not Available Not Avai lable cephalexi n 500 mg capsule 06/01 completed Not Available Not Available Not Available losartan 25 mg tablet TAKE 1 TABLET BY MOUTH EVERY DAY 02/05 completed Not Available Not Available Not Available ibuprofen 600 mg tablet 06/01 completed Not Available Not Available Not Available lisinopri l 2.5 mg tablet take 1 tablet by mouth once daily 05/30 completed Changed to amlodipi ne Not Available Not Available Not Available doxycycli ne hyclate 100 mg tablet Take 1 tablet twice a day by oral route for 10 days. 02/07 completed Not Available Not Available Not Available Vitals Date Recorded Body height Oxygen saturation Oxygen saturation in Arterial blood by Pulse oximetry Heart rate Systolic blood pressure Diastolic blood pressure Provider Name and Address Organization Details Last Updated DateTime 1 179.71 cm 97 % 97 % 88 /min 140 mm[Hg] 86 mm[Hg] Gabby MunozCHAR cole [facility] 15:59:18 Date Recorded Body mass index (BMI) Body weight Systolic blood pressure Diastolic blood pressure Provider Name and Address Organization Details Last Updated DateTime 11/16/2020 28.4 kg/m2 22611.66 g 156 mm[Hg] 100 mm[Hg] POLLY Rausch [address] [place] [address], [address] , [facility] 11/16/2020 16:44:11 Date Recorded Body height Heart rate Body mass index (BMI) Body weight Systolic blood pressure Diastolic blood pressure Provider Name and Address Organization Details Last Updated DateTime 1 179.71 cm 80 /min 30.4 kg/m2 83193.7 5 g 142 mm[Hg] 90 mm[Hg] Sumaya Peters [facility] 16:45:28 Date Recorded Systolic blood pressure Diastolic blood pressure Provider Name and Address Organization Details Last Updated DateTime 05/17/2021 142 mm[Hg] 92 mm[Hg] POLLY Rausch [address] [place] [address], [address], [facility] 05/17/2021 17:03:54 Date Recorded Body height Heart rate Body mass index (BMI) Body weight Systolic blood pressure Diastolic blood pressure Provider Name and Address Organization Details Last Updated DateTime 179.71 cm 80 /min 30.2 kg/m2 38005.3 6 g 146 mm[Hg] 90 mm[Hg] Sumaya Peters [facility] 16:37:24 Date Recorded Systolic blood pressure Diastolic blood pressure Provider Name and Address Organization Details Last Updated DateTime 06/28/2021 136 mm[Hg] 84 mm[Hg] POLLY Rausch [address] [place] [address], [address], [facility] 06/28/2021 16:49:04 Date Recorded Body height Heart rate Systolic blood pressure Diastolic blood pressure Provider Name and Address Organization Details Last Updated DateTime 12/06/2021 179.71 cm 72 /min 138 mm[Hg] 82 mm[Hg] Yojana Ellsworth [facility] 12/06/2021 15:59:00 Date Recorded Body mass index (BMI) Body weight Systolic blood pressure Diastolic blood pressure Provider Name and Address Organization Details Last Updated DateTime 12/06/2021 28.5 kg/m2 03110.25 g 136 mm[Hg] 86 mm[Hg] POLLY Rausch [address] [place] [address], [address] , [facility] 12/06/2021 16:29:34 Date Recorded Body height Heart rate Systolic blood pressure Diastolic blood pressure Systolic blood pressure Diastolic blood pressure Provider Name and Address Organization Details Last Updated DateTime 2 179.71 cm 81 /min 149 mm[Hg] 99 mm[Hg] 124 mm[Hg] 80 mm[Hg] Yamel High user, RMA [facility] 17:01:26 Social History Question Answer Notes LastModified by Organizat ion Details LastModified Time Tobacco Smoking Status Current Some Day Smoker CIGAR- once in awhile POLLY Rausch [address] [place] [address], [address], [facility] 06/01/2019 16:25:51 Do You Have An Advance Directive? No Information not available 04/23/2012 What Is Your Level Of Alcohol Consumption? Heavy 2 Or More Drinks A Day aesrick Information not available 12/06/2021 Do You Wear A Helmet When Biking? No Doesn't Ride A Bike Information not available 12/06/2021 What Is Your Level Of Caffeine Consumption? Moderate 1 Cup A Day Information not available 11/16/2020 How Much Tobacco Do You Chew? None [email or web address] Information not available 04/29/2013 Are You Currently Employed? Yes Information not available 12/06/2021 What Type Of Diet Are You Following? REGULAR Information not available 09/14/2015 Which Illicit Or Recreational Drugs Have You Used? None Information not available 06/01/2019 Do You Or Have You Ever Used E-cigarettes Or Vape? 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 Yes Locked Information not available 06/01/2019 Do You Use Insect Repellent Routinely? No Information not available 12/06/2021 Live Alone Or With Others? With Others Information not available 08/06/2013 Patient Has Health Care Proxy Signed And In Chart No Declined Forms 1.27.16 Information not available 04/23/2012 Marital Status [email or web address] Informatio n not available 08/06/2013 Mosquito Repellent Used Routinely No Information not available 11/16/2020 What Was The Date Of Your Most Recent Tobacco Screening? 01/24/2022 [email or web address] Information not available 01/24/2022 How Many Children Do You Have? 4 Information not available 08/06/2013 What Is Your Relationship Status? Information not available 12/06/2021 Do You Use Your Seat Belt Or Car Seat Routinely? Yes Information not available 12/06/2021 Seat Belts Used Routinely Yes Information not available 09/14/2015 Smoke Alarm In Home Yes Information not available 09/14/2015 Do You Have Smoke And Carbon Monoxide Detectors In Your Home? Yes Information not available 12/06/2021 Are You Passively Exposed To Smoke? Yes Information not available 12/06/2021 Do You Or Have You Ever Used Smokeless Tobacco? Never Used Smokeless Tobacco Information not available 06/01/2019 How Much Tobacco Do You Smoke? No Information not available 06/01/2019 General Stress Level Low Depends On His Work Information not available 11/16/2020 Do You Use Any Illicit Or Recreational Drugs? No Information not available 12/06/2021 Do You Use Sunscreen Routinely? No Information not available 11/16/2020 Sex: Unknown Functional Status Question Answer Note LastModified by Organizat ion Details LastModified Time What is your exercise level? Moderate 5-7/week Information not available 12/06/2021 Mental Status None recorded. Family History Relationship Description Onset Age of this Age Resolved Age Notes LastModified by Organization Details LastModified Time Mother Asthma 70 68 aesrick Not available 16:03:53 Mother Malignant tumor of breast aesrick Not available 2015 16:03:53 Father Hypertensive disorder previo usly record ed as Hypert ension aesrick Not available 11/30/2015 16:03:53 Father Diabetes mellitus 71 (previ ously record ed as Diabet es) aesrick Not available 11/30/2015 16:03:53 Father Cerebrovascu lar accident 30 aesrick Not available 16:58:33 Medical History Condition Response Hypertension Y Immunizations Vaccine Type Date Status Note Provider Nam e and Address Organization Details Recorded Time Tdap 2 completed Not Available [facility] 09/05/2019 02:15:48 Influenza, split virus, trivalent, PF 3 completed Not Available [facility] 09/05/2019 02:30:29 Influenza, split virus, quadrivalent, PF 6 completed Not Available [facility] 09/05/2019 02:34:16 [facility]oster recombinant 1 [facility] 01/24[facility]22 16:43:23 Past Encounters Encounter ID Performer Location Encounter Start Date Encounter Closed Date Diagnosis/Indication Diagnosis SNOMED-CT Code Diagnosis ICD10 Code Diagnosis Note [id number] [facility], OFFICE [address] [place] [address] 10/15/2001 15:30:00 09/08/2008 02:02:29 [id number] HANNA[place] [facility], OFFICE [address] [place] [address] 11/03/2001 11:30:00 09/08/2008 02:02:29 [id number] HANNAH [facility], OFFICE [address] [place] [address] 11/17/2001 09:00:00 09/08/2008 02:02:29 [id number] LAB - [facility] [address] [place] [address] 11/17/2001 10:15:00 09/08/2008 02:02:29 [id number] LAB - [facility] [address] [place] [address] 11/21/2001 11:00:00 09/08/2008 02:02:29 [id number] LAB - [facility] [address] [place] [address] 04/29/2002 09:45:00 09/08/2008 02:02:29 [id number] [facility], OFFICE [address] [place] [address] 04/29/2002 08:24:34 09/08/2008 02:02:29 [id number] [facility], OFFICE [address] [place] [address] 10/29/2002 16:34:21 09/08/2008 02:02:29 [id number] LAB - [facility] [address] [place] [address] 06/27/2004 09:05:25 06/27/2004 09:05:41 [id number] HANNAH [facility], OFFICE [address] [place] [address] 05/18/2005 10:37:40 05/19/2005 10:32:15 [id number] , [facility], OFFICE [address] [place] [address] 08/16/2005 14:42:58 09/08/2008 02:02:29 [id number] , [facility], OFFICE [address] [place] [address] 08/29/2005 11:09:20 08/31/2005 12:35:01 [id number] [facility], OFFICE [address] [place] [address] 03/29/2006 11:27:39 09/08/2008 02:02:29 [id number] Radiology , [facility] [address] [place] [address] 03/29/2006 11:49:00 09/08/2008 02:02:29 [id number] [facility], OFFICE [address] [place] [address] 04/02/2006 09:30:48 04/02/2006 11:40:18 [id number] [facility], OFFICE [address] [place] [address] 01/14/2008 10:50:40 09/08/2008 02:02:29 [id number] [facility] [facility] [address] [place] [address] 01/05/2009 11:12:01 01/05/2009 11:12:41 [id number] [facility], OFFICE [address] [place] [address] 04/23/2012 15:50:55 04/23/2012 16:51:22 [id number] Valentina Tyler [facility], OFFICE [address] [place] [address] 06/04/2012 16:32:14 06/05/2012 14:28:49 [id number] Inna Lopez [facility], OFFICE [address] [place] [address] 01/28/2013 13:32:03 01/28/2013 14:19:42 [id number] Gisselle Patricia [facility], OFFICE [address] [place] [address] 01/30/2013 16:32:03 02/02/2013 13:19:02 [id number] Inna Lopez [facility], OFFICE [address] [place] [address] 04/29/2013 14:54:34 04/29/2013 16:01:39 Adult health examination [id number] see Risk Assessment and Lifestyle Change Counseling section above Counseling [id number] Influenza vaccine needed [id number] 106 Hypertensive disorder [id number] high blood pressure with family hx of htn, will work on diet and exercise and be seen in 2 months if bp still elevated will start meds 15/25 minutes discussing importance of lowering bp [id number] Inna Devi LPN , [facility], OFFICE [address] [place] [address] 08/06/2013 14:57:33 08/06/2013 16:12:46 Benign essential hypertension 6379912 Blood pressure NOT at goal.pt unwilling to take meds at this time, will work to restrict alcohol, lose 5-7 lbs and will f/u [id number] Inna Devi LPN , [facility], OFFICE [address] [place] [address] 12/14/2013 15:34:17 12/14/2013 16:11:43 Benign essential hypertension 8452667 Blood pressure at goal with diet and exercise will try to increase exercise and lose winter weight gain [id number] Inna Napoles , [facility], OFFICE [address] [place] [address] 05/07/2014 15:42:20 05/10/2014 14:37:30 Adult health examination [id number] see Risk Assessment and Lifestyle Change Counseling section above Counseling [id number] Mixed hyperlipidemia 400771128 higher than goal , will get lipids and decide on need for meds [id number] POLLY Rausch , [facility], OFFICE [address] [place] [address] 09/14/2015 14:08:21 09/14/2015 15:30:50 Adult health examination 062683236 Z00.00 see Risk Assessment and Lifestyle Change Counseling section above Screening for malignant neoplasm of colon 688400724 Z12.11 Hypertensive disorder 38 308164 I10 discussed dash/medit erraean diet to decrease bp- will check bp 1x/wk in coming month- call withr esults Mixed hyperlipidemia 267 476146 E78.2 discussed mediterrae na diet to decrease LDL Injury of shoulder region 095096774 S49.80XA DISCUSSED roatator cuf strain- no tear- offered PT declined [id number] POLLY Rausch, [facility], OFFICE [address] [place] [address] 11/30/2015 15:20:04 11/30/2015 16:34:37 Adult health examination 410848691 Z00.00 see Risk Assessment and Lifestyle Change Counseling section above Counseling 962665346 Z71 .9 Screening for malignant neoplasm of colon 317640117 Z12.11 Increased blood pressure 01166661 R03.0 discussed dash siet, decreasing etoh, monitor home readings- f/u in 3 months [id number] POLLY Rausch, [facility], OFFICE [address] [place] [address] 03/05/2016 08:55:46 03/05/2016 10:03:27 Benign essential hypertension 3929063 I10 Blood pressure at goal Blood pressure NOT at goal. Mixed hyperlipidemia 267 955835 E78.2 continue to work on diet and exercise as discussed- recheck lab Counseling 048377142 Z71 .9 [id number] POLLY Rausch, [facility], OFFICE [address] [place] [address] 04/18/2016 16:25:54 04/18/2016 17:21:40 Benign essential hypertension 6319797 I10 Blood pressure NOT at goal. Screening for malignant neoplasm of colon 006735915 Z12.11 brother with recent polyps- due for colonoscop y [id number] POLLY Rausch, [facility], OFFICE [address] [place] [address] 05/30/2016 16:19:05 05/30/2016 17:12:54 Active or passive immunization 278860049 Z23 Screening for malignant neoplasm of colon 647800173 Z12.11 brother with recent polyps- due for colonoscop y Benign ess ential hypertension 0856976 I10 well controlled Low back pain 180281750 M54.5 sx tx, exercises reviewed [id number] POLLY Rausch, [facility], OFFICE [address] [place] [address] 09/17/2016 16:23:03 09/17/2016 16:54:42 Benign essential hypertension 9988690 I10 Blood pressure at goal Low back pain 028984309 M54.5 sx tx, exercises reviewed- F/U IF NOT RESOLVING IN 2-4 WKS- SOONER NAY WORSENING Paresthesi a of upper limb 54306130 R20.2 BY HX - NERVE IMPRNGEMEN T WHEN SLEEPING- WILL CHANGE - F/U IF NOT RESOLVING IN COMING MONTH [id number] POLLY Rausch, [facility], OFFICE [address] [place] [address] 02/28/2017 07:45:41 02/28/2017 09:07:01 Adult health examination 705866890 Z00.00 see Risk Assessment and Lifestyle Change Counseling section above Counseling 238013615 Z71 .9 Screening for malignant neoplasm of colon 843839734 Z12.11 Hyperlipidemia 54016795 E78.5 Benign ess ential hypertension 0973490 I10 Blood pressure not at goal -t katie meds daily- f/u 3 months- mediterrae n diet reviewed [id number] POLLY Rausch, [facility], OFFICE [address] [place] [address] 06/03/2017 16:27:42 06/03/2017 17:11:09 Benign essential hypertension 2476108 I10 Blood pressure at goal- low BP- s/e to med- trial off x 1 month- f/u [id number] POLLY Rausch, [facility], OFFICE [address] [place] [address] 07/08/2017 16:08:01 07/08/2017 16:53:34 Benign essential hypertension 1024868 I10 Blood pressure at goal [id number] POLLY Rausch, [facility], OFFICE [address] [place] [address] 06/01/2019 15:38:13 06/01/2019 16:51:01 Adult health examination 379879399 Z00.00 see Risk Assessment and Lifestyle Change Counseling section above Counseling 819514310 Z71 .9 Depression screening 171 874315 Z13.89 depression screening tool administer ed, entered into emr, scored and discussed, time greater than 7.5 minutes Essential hypertension 84387244 I10 Pure hypercholesterolemia 122230916 E78.00 Screening for malignant neoplasm of colon 588481770 Z12.11 [id number] POLLY Rausch, [facility], OFFICE [address] [place] [address] 06/29/2019 13:18:32 06/30/2019 07:07:08 Essential hypertension 37594753 I10 discussed about foods that help reduce BP. More green vegetables , less whole grains Paresthesi a of upper limb 41182508 R20.2 [id number] POLLY Rausch, [facility], OFFICE [address] [place] [address] 12/23/2019 16:18:39 12/24/2019 13:51:45 Essential hypertension 87855965 I10 discussed about foods that help reduce BP. More green vegetables , less whole grains, stop smoking counseling done Mixed hyperlipidemia 267 495864 E78.2 Cholestero l is at goal Continue to work on diet and exercise as discussed Cigarette smoker 9814045 7 F17.210 discussed stopping cigars- ivon now in pandemic- increase risk reviewed Tobacco user 114295890 Z 72.0 [id number] POLLY Rausch, [facility], OFFICE [address] [place] [address] 11/16/2020 15:38:56 11/18/2020 12:19:26 Adult health examination 397956165 Z00.00 see Risk Assessment and Lifestyle Change Counseling section above Counseling 719311259 Z71 .9 including cardivascu lar risk reduction counseling Depression screening 171 510007 Z13.31 depression screening tool administer ed, entered into emr, scored and discussed, time greater than 7.5 minutes Screening for alcohol abuse 882114808 Z13.39 Essential hypertension 21227489 I10 discussed about foods that help reduce BP. More green vegetables , less whole grains, stop smoking counseling done Pure hypercholesterolemia 459115692 E78.00 Screening for malignant neoplasm of colon 863535790 Z12.11 Referral for a DIRECT booked colonoscop y. This patient is a healthy ASA Class 1 or 2 patient (only mild systemic disease), or a STABLE, well controlled insulin dependent diabetic. They do not have serious cardiac disease ie CT/angiopl asty within 1 year, symptomati c CHF; renal failure with CKD 4 or 5; take Coumadin, Plavix, Aggrenox, etc. Cigarette smoker 5596440 7 F17.210 discussed stopping cigars- ivon now in pandemic- increase risk reviewed Tobacco user 393086168 Z 72.0 Benign ess ential hypertension 4309865 I10 Blood pressure at goal [id number] POLLY Rausch, [facility], OFFICE [address] [place] [address] 05/17/2021 16:32:33 05/17/2021 17:15:15 Essential hypertension 44770714 I10 uncontroll ed- increaseam lodipine to 10 mg hs. discussed about foods that help reduce BP. More green vegetables , less whole grains, stop smoking counseling done, DECREASE ETOH FROM 2 TO 1/HS Mixed hyperlipidemia 267 210107 E78.2 Cholestero l is at goal Continue to work on diet and exercise as discussed Cigarette smoker 3819661 7 F17.210 discussed stopping cigars- ivon now in pandemic- increase risk reviewed Tobacco user 175348554 Z 72.0 [id number] POLLY Rausch, [facility], OFFICE [address] [place] [address] 06/28/2021 16:22:41 07/10/2021 11:46:20 Essential hypertension 85627782 I10 improved BP after increase amlodipine to 10 mg hs. discussed about foods that help reduce BP. More green vegetables , less whole grains, stop smoking counseling done, DECREASE ETOH FROM 2 TO 1/HS, no longer using cigars with cold weather- will track home BP readaings. Goal is BP < 130/80- f/u with results and for pHA in next yr [id number] POLLY Rausch, [facility], OFFICE [address] [place] [address] 12/06/2021 15:39:57 01/04/2022 20:04:19 Adult health examination 653466372 Z00.00 see Risk Assessment and Lifestyle Change Counseling section above Counseling 263621729 Z71 .9 including cardivascu lar risk reduction counseling Depression screening 171 844603 Z13.31 depression screening tool administer ed, entered into emr, scored and discussed, time greater than 7.5 minutes Screening for alcohol abuse 491580444 Z13.39 Tobacco user 650378961 Z 72.0 Screening for malignant neoplasm of colon 793749898 Z12.11 Referral for a DIRECT booked colonoscop y. This patient is a healthy ASA Class 1 or 2 patient (only mild systemic disease), or a STABLE, well controlled insulin dependent diabetic. They do not have serious cardiac disease ie CT/angiopl asty within 1 year, symptomati c CHF; renal failure with CKD 4 or 5; take Coumadin, Plavix, Aggrenox, etc. Essential hypertension 81028150 I10 improved BP after increase amlodipine to 10 mg hs. discussed about foods that help reduce BP. More green vegetables , less whole grains, stop smoking counseling done, DECREASE ETOH FROM 2 TO 1/HS, no longer using cigars with cold weather- will track home BP readaings. Goal is BP < 130/80- f/u with results and for pHA in next yr Liver enzy mes level above reference range 287682149 R74.01 in past- with etoh use- recheck liver tests [id number] POLLY Rausch FP, [facility], [address] [place] [address] 01/24/2022 16:24:34 02/12/2022 16:59:15 Essential hypertension 70824720 I10 pt unable to wait for provider- waiting over 30 mins- tcdone- left message re BP- improved control- needing bmp- to et lab and will f/u with results Tobacco user 176450593 Z 72.0 Active or passive immunization 407912482 Z23 COVID, 2nd Shingrix, and Td Screening for malignant neoplasm of colon 452235603 Z12.11 Referral for a DIRECT booked colonoscop y. This patient is a healthy ASA Class 1 or 2 patient (only mild systemic disease), or a STABLE, well controlled insulin dependent diabetic. They do not have serious cardiac disease ie CT/angiopl asty within 1 year, symptomati c CHF; renal failure with CKD 4 or 5; take Coumadin, Plavix, Aggrenox, etc. Health Concerns Section Related Observation LastModified by Organization Detai ls LastModified Time None Recorded Concern Status LastModified by Organization Details LastModified Time None Recorded Advance Directives Directive N: Payers Encounter Date Sequence Insurance Name Policy Number Policy Zamorano Covered Member ID Zamorano Member ID Guarantor Name 11/16/2020 1 [facility] [id number] 1 Ronald Garvin [id number] Ronald Garvin Jr 05/17/2021 1 [facility] ([facility] [id number] 1 Ronald Garvin [id number] Ronald Garvin Jr 06/28/2021 1 [facility] ([facility]) [id number] 1 Ronald Garvin [id number] Ronald Garvin Jr 12/06/2021 1 [facility] ([facility]) [id number] 1 Ronald Aguiar Margarita [id number] Ronald Aguiar Margarita Ledezma 01/24/2022 1 [facility] ([facility]) [id number] 1 Ronald Aguiar Margarita [id number] Ronald Aguiar Margarita Ledezma Notes Date Note Type Note Provider Name and Address Organization Details Recorded Time 1 text/html Risk Assessment and Lifestyle Change Counseling 50-64Reported bypatient.Coronary Artery Disease Risk Assessment:No Family history of coronary artery disease; No personal history of diabetes; No history of peripheral vascular disease, AAA, or carotid disease; No personal history of coronary artery disease Breast Cancer Risk Assessment:Family history of breast cancer one first degree relative; No history of breast cancer or dcis Colon Cancer Risk Assessment:No family history of colon polyps or cancer; No history of adenomatous colon polyps Lung Cancer Risk Assessment:uses cigars- 2-3/wk in summer Fracture Risk Assessment:No unexplained fracture Cognitive/Behavioral Risk Assessment:No personal history of mental illness; No family history of mental illness Safety Risk Assessment:No evidence of abuse/neglect Diet:Counseled about appropriate portion size; Counseled about eating a diet low in trans and saturated fats and high in fiber, fruits and vegetables; Counseled about appropriate calcium intake and good dietary sources of calcium.; Counseled about the importance of maintaining a positive calcium balance and taking 1000 iu Vitamin D daily.; Counseled about decreasing carbohydrates; Counseled about decreasing salt in diet; Discussed the value of a Mediterranean diet , and eating more fruits and vegetables Exercise counseling:Discussed the importance of daily physical activity; Discussed the importance of weight bearing exercise Safety:Counseled about protecting skin from the sun and lowering the risk of skin cancer; Counseled about avoiding excessive and unsafe alcohol intakeVMG HypertensionReported bypatient.Context:No ischemic heart disease; No kidney disease; No history of CVA; No congestive heart failure; No history of transient ischemic attacks; No peripheral vascular disease; No history of diabetes Compliance:Compliant with medications; Compliant with diet; Compliant with exercise Self Care:not doing home bp monitoring Aggravating factors:counseled to decrease alcohol use; counseled to stop smoking Associated Symptoms:No chest pain; No shortness of breath; No edema; No fatigue; No palpitations; No decline in exercise capacitya/vmg-smoking [id number] bypatient.Notes:[employer] Loy S Esrick, PA [address] [place] [address], [phone], [facility] 11/17/2020 19:50:55 1 text/html VMG HypertensionReported bypatient.Context:No ischemic heart disease; No kidney disease; No history of CVA; No congestive heart failure; No history of transient ischemic attacks; No peripheral vascular disease; No history of diabetes Compliance:Compliant with medications; Compliant with diet; Compliant with exercise Self Care:not doing home bp monitoring Aggravating factors:counseled to decrease alcohol use; counseled to stop smoking Associated Symptoms:No chest pain; No shortness of breath; No edema; No fatigue; No palpitations; No decline in exercise capacitya/vmg-smoking [id number] bypatient.Importancecigar 2x/wk- not ready to quit, knowledgeable > 7000 chemical in one cigarNotes:INFREQ CIGAR- 2/wk 1 coffee/day, etoh- 2/day- no increase amts. no chest pain, dyspnea, or palpitations. POLLY Rausch [address] [place] [address], [phone], [facility] 05/17/2021 17:18:12 1 text/html VMG HypertensionReported bypatient.Context:No ischemic heart disease; No kidney disease; No history of CVA; No congestive heart failure; No history of transient ischemic attacks; No peripheral vascular disease; No history of diabetes Control:Patient understands medications are to lower blood pressure Barriers to CareNo identified barriers to care Self Care:not doing home bp monitoring Aggravating factors:counseled to increase activity; counseled to lose weight; counseled to decrease caffeine intake; counseled to decrease alcohol use; counseled to decrease salt intake; counseled to stop smoking Associated Symptoms:No chest pain; No shortness of breath; No edema; No fatigue; No palpitations; No decline in exercise capacity F/U htn, not vaccinated for covid , had increased amlodipine to 10 mg, no s/e reviewed labs with glucose 99, LDL 119. caffeine- 1/day, etoh- 1-2/hs POLLY Rausch [address] [place] [address], [phone], [facility] 07/01/2021 09:55:30 2 text/html Risk Assessment and Lifestyle Change Counseling 50-64Reported bypatient.Coronary Artery Disease Risk Assessment:No Family history of coronary artery disease; No personal history of diabetes; No history of peripheral vascular disease, AAA, or carotid disease; No personal history of coronary artery disease Breast Cancer Risk Assessment:Family history of breast cancer one first degree relative; No history of breast cancer or dcis Colon Cancer Risk Assessment:No family history of colon polyps or cancer; No history of adenomatous colon polyps Lung Cancer Risk Assessment:uses cigars- 2-3/wk in summer Fracture Risk Assessment:No unexplained fracture Cognitive/Behavioral Risk Assessment:No personal history of mental illness; No family history of mental illness Safety Risk Assessment:No evidence of abuse/neglect Diet:Counseled about appropriate portion size; Counseled about eating a diet low in trans and saturated fats and high in fiber, fruits and vegetables; Counseled about appropriate calcium intake and good dietary sources of calcium.; Counseled about the importance of maintaining a positive calcium balance and taking 1000 iu Vitamin D daily.; Counseled about decreasing carbohydrates; Counseled about decreasing salt in diet; Discussed the value of a Mediterranean diet , and eating more fruits and vegetables Exercise counseling:Discussed the importance of daily physical activity; Discussed the importance of weight bearing exercise Safety:Counseled about protecting skin from the sun and lowering the risk of skin cancer; Counseled about avoiding excessive and unsafe alcohol intakeVMG HypertensionReported bypatient.Context:No ischemic heart disease; No kidney disease; No history of CVA; No congestive heart failure; No history of transient ischemic attacks; No peripheral vascular disease; No history of diabetes Compliance:Compliant with medications; Compliant with diet; Compliant with exercise Self Care:not doing home bp monitoring Aggravating factors:counseled to decrease alcohol use; counseled to stop smoking Associated Symptoms:No chest pain; No shortness of breath; No edema; No fatigue; No palpitations; No decline in exercise capacitya/vmg-smoking [id number] bypatient.Importance2 x/wk in good weather- cigars-Notes:INFRPOLLY Larios [address] [place] [address], [phone], [facility] 12/06/2021 16:48:11 2 text/html Risk Assessment and Lifestyle Change Counseling 50-64Reported bypatient.Coronary Artery Disease Risk Assessment:No Family history of coronary artery disease; No personal history of diabetes; No history of peripheral vascular disease, AAA, or carotid disease; No personal history of coronary artery disease Breast Cancer Risk Assessment:Family history of breast cancer one first degree relative; No history of breast cancer or dcis Colon Cancer Risk Assessment:No family history of colon polyps or cancer; No history of adenomatous colon polyps Lung Cancer Risk Assessment:uses cigars- 2-3/wk in summer Fracture Risk Assessment:No unexplained fracture Cognitive/Behavioral Risk Assessment:No personal history of mental illness; No family history of mental illness Safety Risk Assessment:No evidence of abuse/neglect Diet:Counseled about appropriate portion size; Counseled about eating a diet low in trans and saturated fats and high in fiber, fruits and vegetables; Counseled about appropriate calcium intake and good dietary sources of calcium.; Counseled about the importance of maintaining a positive calcium balance and taking 1000 iu Vitamin D daily.; Counseled about decreasing carbohydrates; Counseled about decreasing salt in diet; Discussed the value of a Mediterranean diet , and eating more fruits and vegetables Exercise counseling:Discussed the importance of daily physical activity; Discussed the importance of weight bearing exercise Safety:Counseled about protecting skin from the sun and lowering the risk of skin cancer; Counseled about avoiding excessive and unsafe alcohol intakeVMG HypertensionReported bypatient.Context:No ischemic heart disease; No kidney disease; No history of CVA; No congestive heart failure; No history of transient ischemic attacks; No peripheral vascular disease; No history of diabetes Compliance:Compliant with medications; Compliant with diet; Compliant with exercise Self Care:not doing home bp monitoring Aggravating factors:counseled to decrease alcohol use; counseled to stop smoking Associated Symptoms:No chest pain; No shortness of breath; No edema; No fatigue; No palpitations; No decline in exercise capacitya/vmg-smoking [id number] bypatient.Importance2 x/wk in good weather- cigars-Notes:INFREQ C[employer] 01/24/22-No concerns POLLY Rausch [address] [place] [address], [phone], [facility] 01/24/2022 17:25:41
--- OUTSIDE RECORDS SUMMARY | 2024-11-16 11:16 | XMS_ITS | Continuity of Care Document ---
Author Organization [facility], [facility] Address [address] [place] [address] [place] [address] Assessment No assessment recorded. Plan of Treatment Reminders Order Date Submit Date Provider Last Modified By Organization Details Last Modified Time Details Appointments ANNUAL EXAM 2024 09:30A M POLLY MARTINEZ Not available Not available Not available ANNUAL EXAM 2025 03:30P M POLLY MARTINEZ Not available Not available Not available Lab CMP, serum or plasma 2024 025 [facility], [address] [place] [address], [id number], 11/16/2024 10:00:40 CBC w/ auto diff 2024 025 [facility], [address] [place] [address], [id number], 11/16/2024 10:00:40 PSA, serum or plasma 2024 025 [facility], [address] [place] [address], [id number], 11/16/2024 10:00:41 lipid panel, blood 2024 025 [facility], [address] [place] [address], [id number], 11/16/2024 10:00:41 hemoglobi n A1c, QN, blood 2024 025 [facility], [address] [place] [address], [id number], 11/16/2024 10:00:41 Referral None recorded. Procedures None recorded. Surgeries None recorded. Imaging XR, hip, unilatera l, 2 or 3 view 2024 025 [email or web address] [facility], [address], [place], [address], 11/16/2024 10:24:25 Medication Orders None recorded. Patient TargetsNo targets recorded. Patient InstructionsNo instructions recorded. Reason for Referral None Reported. Problems Name Problem SNOMED Code Status Onset Date Resolution Date Notes Provider Name and Address Organization Details Recorded Time Radha grover hyperten damaris 19143522 Active 2022 Malika valdez [facility] 3 09:41:04 Hypercho lesterol emia 47992972 Active 2022 Malika valdez [facility] 3 09:41:16 Low back pain 542478963 Active 2022 Malika valdez [facility] 3 09:41:21 Cervical radiculo lang 14323070 Active 2022 compressi on of his nerves at C6-C7 POLLY MARTINEZ [address] [place], [address], [facility] 3 09:09:24 Vitamin D deficien cy 54238864 Active 2022 POLLY MARTINEZ [address] [place], [address], [facility] [place] 3 09:10:52 Erectile dysfunct ion 898765350 Active 2022 Austin Merritt DO [address] [place], [address], [facility] [place] 3 12:10:22 Pain in right hip joint 80305055501 9102 Active 2024 POLLY MARTINEZ [address] [place], [address], [facility] [place] 5 09:51:51 Problem Notes None recorded. Procedures Surgical History Date Name Laterality Status Provider Name and Address Organization Details Recorded Time 021 cholecystectomy completed POLLY MARTINEZ [address] [place], [address], [facility] [place] 10/25/2022 09:22:43 vasectomy completed POLLY MARTINEZ [address] [place], [address], [facility] [place] 10/25/2022 09:22:06 Imaging Results None recorded. Procedure Notes None recorded. Medical Equipment None Reported. Allergies Allergen ID Allergen Name Allergen Category Reaction Reaction Severity Criticality Documentation Date Start Date Code Code System Note Provider Name and Address Organization Details Recorded Time 6468 lisinopri l medicatio n Not available Not available Not available 10/23/2022 79137 RxNorm cough POLLY MARTINEZ [address] [place], [address], [facility] 09:06:45 Medications Name Sig Start Date Stop [...] Updated DateTime 5 180.34 cm 30.1 kg/m2 69126.9 5 g 90 /min 97 % 97 % 130 mm[Hg] 80 mm[Hg] Josi Rick [facility] 5 09:32:58 Social History Question Answer Notes LastModified by Organization Details LastModified Time Tobacco Smoking Status Current Some Day Smoker OCC. [employer] Malika valdez [facility] 10/25/2022 08:57:59 Do You Have An Advance [...] Or The Highest Degree You Have Received? 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 11/16/2024 [email or web address] Information not available 11/16/2024 How Many Children [...] Anxious, Or Unable To Sleep At Night)? [id number] Information not available 10/25/2022 Do You Use [...] SNOMED-CT Code Diagnosis ICD10 Code Diagnosis Note [id number] POLLY MARTINEZ [facility] [address] [place] [address] 11/16/2024 09:15:36 11/16/2024 10:24:25 Pain in right hip joint 5527991870 53499 M25.551 will set up with?ashly l tear vs bursitis Adult heal th examination 542513722 Z00.00 BP is good today and good at home per patientmed ications work well Health Concerns Section Related Observation LastModified by Organization Detai ls LastModified Time None Recorded Concern Status LastModified by Organization Details LastModified Time None Recorded Payers Encounter Date Sequence Insurance Name Policy Number Policy Zamorano Covered Member ID Zamorano Member ID Guarantor Name 11/16/2024 1 [employer] [id number]) [id number] [facility] [id number] [facility] Notes Date Note Type Note Provider Name a vt Address Organization Details Recorded Time 5 text/html Annual WellnessReported bypatient.Diet and Nutrition:healthy diet; discussed [...] imaging since it hasn't improved POLLY MARTINEZ [address] [facility], [place], [address], [facility] 11/16/2024 10:04:20
[2024-11-16 13:53] LABS: MANUAL DIFF FLAG NO
[2024-11-16 13:59] LABS: Basophils Absolute Auto 0.1 X10*3/uL (0.0-0.2); Basophils Percent Auto 1.2 % (0-2); Eosinophils Absolute Auto 0.2 X10*3/uL (0.0-0.4); Eosinophils Percent Auto 3.2 % (0-4); Hematocrit 45.7 % (42.0-52.0); Imm Gran Abs Auto 0.05 X10*3/uL (0.00-0.03); Imm Gran Pct Auto 0.7 % (0.0-0.4); Lymphocytes Percent Auto 28.9 % (20-40); Mean Corpuscular Volume 85.7 fL (80.0-98.0); Mean Platelet Volume 9.9 fL (9.4-12.4); Monocytes Absolute Auto 0.7 X10*3/uL (0.1-1.2); Monocytes Percent Auto 9.8 % (2-11); Neutrophils Absolute Auto 3.8 x10*3/uL (2.0-8.3); Neutrophils Percent Auto 56.2 % (45-73); Platelet Count 263 X10*3/uL (160-400); Red Blood Count 5.33 X10*6/uL (4.60-5.80); White Blood Count 6.8 X10*3/uL (4.8-10.8)
[2024-11-16 14:07] LABS: Estimated Average Glucose 105 mg/dL; Hemoglobin A1c % 5.3 % (<6.0)
[2024-11-16 14:12] LABS: Alanine Aminotransferase 26 U/L (0-40); Albumin Level 4.4 g/dL (3.5-5.0); Alkaline Phosphatase 52 U/L (39-117); Anion Gap 11 (12-20); Aspartate Amino Transferase 23 U/L (5-37); Bilirubin Total 0.5 mg/dL (0.0-1.0); Blood Urea Nitrogen 14 mg/dL (9-16); Calcium 9.3 mg/dL (8.4-10.2); Carbon Dioxide 27 mmol/L (22-29); Chloride 107 mmol/L (96-108); Cholesterol 209 mg/dL (<200); Estimated Glomerular Filt Rate > 60; Glucose Random 92 mg/dL (60-115); HDL Cholesterol 76 mg/dL (>40); LDL Cholesterol Calculated 116 mg/dL (<100); Potassium 4.1 mmol/L (3.3-5.1); Sodium 141 mmol/L (135-145); Total Protein 7.2 g/dL (6.5-8.0); Triglycerides 87 mg/dL (<150)
[2024-11-16 14:57] LABS: Prostate Specific Antigen 0.93 ng/mL (<0.05-4.0)
== END 2024-11-16 10:08 | disposition home or self-care (01) ==
LOC: HO.MANLDS 10:07
PROVIDERS: Visit Provider Internal Medicine
DX: Z00.00 Encounter for general adult medical examination without abnormal findings (principal); Z12.5 Encounter for screening for malignant neoplasm of prostate; Z13.6 Encounter for screening for cardiovascular disorders; Z13.1 Encounter for screening for diabetes mellitus
CPT/HCPCS: 36415; 80053; 80061; 83036; 84153; 85025